=== PATIENT | male | born 2000 | race African-American/Black ===

== ENCOUNTER 2020-07-17 20:18 | Emergency (ER) | payer SELFPAY ==
[2020-07-17] MEDS ORDERED: Diazepam 5 MG TAB ONE (21:20)
[2020-07-17] MEDS ORDERED: Ketorolac Tromethamine 30 MG/ML VIAL ONE (21:20)
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
== END 2020-07-17 22:51 | disposition home or self-care (01) ==
LOC: ERS 20:18
DX: M79.662 Pain in left lower leg (principal); V89.2XXA Person injured in unspecified motor-vehicle accident, traffic, initial encounter
CPT/HCPCS: 96372; J1885